=== PATIENT | female | born 1975 | race Caucasian/White ===

== ENCOUNTER 2018-08-08 10:09 | Emergency (ER) | payer MEDICAID ==
[~2018-08-08] VITALS: Ht 175.3 cm; Wt 86.2 kg
[2018-08-08] MEDS ORDERED: NALTREXONE HCL50 MG PO (10:37)
[2018-08-08] MEDS ORDERED: NEURONTIN300 MG PO (10:37)
[2018-08-08] MEDS ORDERED: DOXYCYCLINE HY100 MG PO (12:04)
== END 2018-08-08 12:10 | disposition home or self-care (01) ==
LOC: ED 10:09
DX: N93.9 Abnormal uterine and vaginal bleeding, unspecified (principal); A64 Unspecified sexually transmitted disease; Z79.899 Other long term (current) drug therapy
CPT/HCPCS: 81001; 84703; 85025; 87491; 87591; 99284